=== PATIENT | female | born 1990 | race Caucasian/White ===

== ENCOUNTER → 2017-02-02 | Outpatient (CLI) | payer OTHER ==
[2017-02-02 09:10] LABS: HEMOGLOBIN 15.4 g/dL (11.7-16.4)
[2017-02-02 09:13] LABS: ASPARTATE AMINO TRANSFERASE 17 U/L (15-37); BLOOD UREA NITROGEN 10 mg/dL (7-18); C-REACTIVE PROTEIN, QUANT 0.15 mg/dL (0.02-0.49)
[2017-02-02 15:12] LABS: ANA SCREEN NEGATIVE (Negative); RAPID PLASMA REAGIN Nonreactive (Nonreactive)
== END | disposition home or self-care (01) ==
LOC: LAB 08:36
PROVIDERS: ATTEND Psychiatry & Neurology Neurology
DX: H53.47 Heteronymous bilateral field defects (principal); H47 Other disorders of optic [2nd] nerve and visual pathways; H46.8 Other optic neuritis; H47.033 Optic nerve hypoplasia, bilateral
CPT/HCPCS: 36415; 80053; 82164; 82607; 82746; 85025; 85549; 85651; 86038; 86140; 86147; 86592